=== PATIENT | male | born 1955 | race Caucasian/White ===

== ENCOUNTER → 2016-06-12 | Outpatient (CLI) | payer OTHER ==
--- NOTE | 2016-06-12 10:51 | US ---
EXAMINATION TYPE: US abdomen comp/pelvis limited DATE OF EXAM: 06/12/2016 9:35 AM COMPARISON: US on PACS CLINICAL HISTORY: R10.9 abdominal pain. Hematuria; renal stone left; RLQ pain post hernia repair 2 ye ars prior for bilateral inguinal hernia repair; on meds for gout, cholesterol, HTN, and antibiotic fo r prostate EXAM MEASUREMENTS: Liver Length: 15.1 cm Gallbladder Wall: 0.2 cm CBD: 0.4 cm Spleen: 10.1 cm Right Kidney: 9.9 x 5.9 x 5.0 cm Left Kidney: 9.8 x 4.5 x 4.8 cm Post Void Residual: 3.8 mL TECHNOLOGIST IMPRESSION: Pancreas: wnl as visualized as tail was gassed out with full bladder prep Liver: wnl Gallbladder: wnl CBD: wnl Spleen: wnl Right Kidney: multiple shadowing renal stones with largest at lower pole = 0.6 x 0.4 x 0.4cm; small cyst noted lateral cortex = 0.6 x 0.5 x 0.4cm Left Kidney: multiple shadowing stones with largest at mid lateral pole = 0.8 x 0.7 x 0.5cm Upper IVC: wnl Abd Aorta: wnl Bladder: wnl Bilateral Jets Seen Yes Normal Post Void Residual (normal less than 50ml) Yes At patient's area of pain at RLQ post right hernia repair 2 years ago, possible hernia reoccurrence i s noted medial to mesh on transverse images and as compared to left inguinal area of repair done at s vidya time IMPRESSION: 1. Technologist suggests a right lower quadrant recurrent hernia 2. Nonobstructing left renal stones.
--- NOTE | 2016-06-12 11:02 | US ---
EXAMINATION TYPE: US prostate transrectal DATE OF EXAM: 06/12/2016 10:03 AM COMPARISON: NONE CLINICAL HISTORY: . elevated PSA/ see lab values scanned in orders; on meds for HTN, gout, cholestero l, and antibiotic for prostate; recent hematuria with HX of renal stones This examination was performed using the transrectal probe. EXAM MEASUREMENTS: Gland Size: 4.2 x 4.5 x 3.0cm Volume: 29.8ml Predicted PSA: 3.57ng/ml Actual PSA (if available):7.5ng/ml TECHNOLOGIST IMPRESSION: Multiple Central Gland Calcifications are noted. Size is essentially wnl as Normal Prostate Value is < 30 ml. No peripheral gland hypoechoic areas are noted. IMPRESSION: 1. Calcifications within the prostate. No suspicious hypoechoic areas identified. Predicted PSA = volume x 0.12 ng/ml Calculated Volume = 0.5236 x L x W x H
== END | disposition home or self-care (01) ==
LOC: RADUSMAIN 08:27
PROVIDERS: ATTEND Family Medicine
DX: N20.0 Calculus of kidney (principal); N42.89 Other specified disorders of prostate; R97.20 Elevated prostate specific antigen [PSA]; R10.9 Unspecified abdominal pain
CPT/HCPCS: 76700; 76857; 76872

== ENCOUNTER → 2016-08-08 | Outpatient (CLI) | payer OTHER ==
--- NOTE | 2016-08-08 11:05 | XR ---
EXAMINATION TYPE: XR KUB DATE OF EXAM: 08/08/2016 10:56 AM COMPARISON: NONE HISTORY: Pain TECHNIQUE: One view abdominal series FINDINGS: The osseous structures are intact. The bowel gas pattern is nonspecific. Hypertrophic change of the spine and arthropathy of the hips. Right kidney: Approximately 10 calcifications overlying the right kidney the largest measuring 6 mm. Additional area spine suspicious for a right UPJ calcification measuring a diameter of 9 mm. Left kidney: Approximate 6 punctate calcifications measuring 2 to 3 mm. Pelvis: There is a single calcification overlying the left SI joint along its inferior margin measuri ng 3.6 mm. IMPRESSION: 1. Stable bilateral nephrolithiasis. Distal left ureteral calculus versus vascular calcification. Tony ng the inferior margin of the left SI joint. Correlate clinically.
== END ==
LOC: RADXRMAIN 10:27
PROVIDERS: ATTEND Urology
DX: N20.0 Calculus of kidney (principal)
CPT/HCPCS: 74000

== ENCOUNTER → 2017-01-03 | Outpatient (CLI) | payer OTHER ==
--- NOTE | 2017-01-03 08:46 | CT ---
EXAMINATION TYPE: CT abdomen pelvis w con DATE OF EXAM: 01/03/2017 COMPARISON: NONE HISTORY: Follow up to inguinal hernia repair CT DLP: 652.8 mGycm CONTRAST: CT scan of the abdomen and pelvis is performed with Oral Contrast and with IV Contrast, patient injec florentin with 100 mL of Omnipaque 300. FINDINGS: LUNG BASES-: No visible nodule. No infiltrate. LIVER/GB: No calcified gallstones. No space occupying hepatic lesion. Biliary tree is of normal ca liber. PANCREAS: No inflammation. No distinct mass. SPLEEN: No splenic enlargement. No lesion seen. ADRENALS: No nodule. No thickening. KIDNEYS/BLADDER: No hydronephrosis. There is evidence of bilateral nephrolithiasis. Multiple right-s ided renal calculi with the largest within the lower pole measuring 7.6 mm. The largest calculus left kidney is identified within the mid pole and measures maximal measured dimension of 6.3 mm. No disct inct renal mass. Urinary bladder grossly unremarkable. BOWEL: Normal appendix. Normal bowel caliber. No inflammation. GENITAL ORGANS: No gross abnormality. LYMPH NODES: No greater than 1cm abdominal or pelvic lymph nodes are appreciated. AORTA: No significant abnormality. OSSEOUS STRUCTURES: No significant abnormality is seen. OTHER: Fat-containing inguinal hernias left slightly larger than right. IMPRESSION: 1. Fat-containing inguinal hernias left slightly larger than right. 2. Bilateral nonobstructing nephrolithiasis.
== END | disposition home or self-care (01) ==
LOC: RADCTMAIN 08:12
PROVIDERS: ATTEND Surgery
DX: K40.20 Bilateral inguinal hernia, without obstruction or gangrene, not specified as recurrent (principal); N20.0 Calculus of kidney
CPT/HCPCS: 74177; Q9967

== ENCOUNTER → 2017-06-07 | Outpatient (CLI) | payer BC ==
[2017-06-07 11:10] LABS: Uric Acid 7.1 mg/dL (3.5-8.5)
[2017-06-07 11:41] LABS: Prostate Specific Antigen 5.23 ng/mL (0.00-4.00)
[2017-06-07 16:59] LABS: Hepatitis A Antibody IgM Non-Reactive (Non-Reactive); Hepatitis B Core IgM Non-Reactive (Non-Reactive)
== END | disposition home or self-care (01) ==
LOC: LABWHC1 10:35
PROVIDERS: ATTEND Radiology Radiation Oncology
DX: M10.9 Gout, unspecified (principal); C61 Malignant neoplasm of prostate; Z11.59 Encounter for screening for other viral diseases
CPT/HCPCS: 36415; 80074; 84153; 84550

== ENCOUNTER → 2017-07-24 | Outpatient (CLI) | payer BC | END | disposition home or self-care (01) | LOC: LABWHC1 08:44 | PROVIDERS: ATTEND Radiology Radiation Oncology | DX: C61 Malignant neoplasm of prostate (principal) | CPT/HCPCS: 36415; 84153 ==

== ENCOUNTER → 2017-10-19 | Outpatient (CLI) | payer BC | END | disposition home or self-care (01) | LOC: LABWHC1 08:53 | PROVIDERS: ATTEND Radiology Radiation Oncology | DX: C61 Malignant neoplasm of prostate (principal) | CPT/HCPCS: 36415; 84153 ==

== ENCOUNTER → 2018-01-28 | Outpatient (CLI) | payer BC | END | disposition home or self-care (01) | LOC: LABWHC1 07:09 | PROVIDERS: ATTEND Radiology Radiation Oncology | DX: C61 Malignant neoplasm of prostate (principal) | CPT/HCPCS: 36415; 84153; 84403 ==

== ENCOUNTER → 2018-03-15 | Outpatient (CLI) | payer BC | END | disposition home or self-care (01) | LOC: LABWHC1 08:12 | PROVIDERS: ATTEND Radiology Radiation Oncology | DX: C61 Malignant neoplasm of prostate (principal); Z92.3 Personal history of irradiation | CPT/HCPCS: 36415; 84153 ==

== ENCOUNTER → 2018-06-17 | Outpatient (CLI) | payer BC | END | disposition home or self-care (01) | LOC: LABWHC1 07:45 | PROVIDERS: ATTEND Radiology Radiation Oncology | DX: C61 Malignant neoplasm of prostate (principal); Z92.3 Personal history of irradiation | CPT/HCPCS: 36415; 84153 ==

== ENCOUNTER → 2018-10-07 | Outpatient (CLI) | payer BC | END | disposition home or self-care (01) | LOC: LABWHC1 07:26 | PROVIDERS: ATTEND Radiology Radiation Oncology | DX: C61 Malignant neoplasm of prostate (principal); Z92.3 Personal history of irradiation | CPT/HCPCS: 36415; 84153 ==

== ENCOUNTER → 2019-02-03 | Outpatient (CLI) | payer BC | END | disposition home or self-care (01) | LOC: LABWHC1 07:36 | PROVIDERS: ATTEND Radiology Radiation Oncology | DX: C61 Malignant neoplasm of prostate (principal); Z92.3 Personal history of irradiation | CPT/HCPCS: 36415; 84153 ==

== ENCOUNTER 2019-08-11 11:12 | Emergency (ER) | payer BC ==
[2019-08-11] MEDS ORDERED: SODIUM CHLORIDE 0.9% 500 ML 500 ML IV STA (11:38)
--- NOTE | 2019-08-11 11:50 | ED ---
General Adult HPI - General Chief complaint: Shortness of Breath Stated complaint: Pneumonia,SOB Time Seen by Provider: 08/11/19 11:12 Source: patient, RN notes reviewed, old records reviewed Mode of arrival: ambulatory Limitations: no limitations - History of Present Illness Initial comments: This is a 64-year-old male who presents emergency Department stating for 3 weeks she's had a cough and been treated with antibiotics and steroids and he feels as though in the last week and shortness of breath has gotten worse. Patient states she has some chest soreness and particularly with coughing. Patient states has been ongoing for one week. Patient denies any known fever or chills per patient denies exposure to anyone with COVID and any travel out of state. She states she is occasionally dizzy but there is been no near syncopal episode. Patient denies any numbness or weakness. Patient denies any abdominal pain patient's nausea vomiting diarrhea - Related Data Home Medications Medication Instructions Recorded Confirmed amLODIPine [Norvasc] 2.5 mg PO DAILY 01/28/14 08/11/19 Allopurinol [Zyloprim] 300 mg PO DAILY 08/11/19 08/11/19 Fluticasone/Umeclidin/Vilanter 1 inhalation INHALATION RT-BID 08/11/19 08/11/19 [Trelegy Ellipta 100-62.5-25] Pravastatin Sodium [Pravachol] 20 mg PO DAILY 08/11/19 08/11/19 Tamsulosin HCl [Flomax] 0.4 mg PO HS 08/11/19 08/11/19 Allergies Allergy/AdvReac Type Severity Reaction Status Date / Time lisinopril Allergy Severe RENAL Verified 08/11/19 12:21 FAILURE sulfamethoxazole Allergy Severe RENAL Verified 08/11/19 12:21 [From Bactrim] FAILURE trimethoprim [From Bactrim] Allergy Severe RENAL Verified 08/11/19 12:21 FAILURE amoxicillin [Amoxicillin] Allergy Unknown Rash/Hives Verified 08/11/19 12:21 Penicillins Allergy Unknown Rash/Hives Verified 08/11/19 12:21 Review of Systems ROS Statement: Those systems with pertinent positive or pertinent negative responses have been documented in the HPI. ROS Other: All systems not noted in ROS Statement are negative. Past Medical History Past Medical History: Hyperlipidemia, Hypertension, Osteoarthritis (OA) Additional Past Medical History / Comment(s): GOUT, BACK PAIN. STATES "KIDNEYS SHUT DOWN FROM MEDICATIONS" History of Any Multi-Drug Resistant Organisms: None Reported Additional Past Surgical History / Comment(s): RT HAND TRIGGER FINGER Past Anesthesia/Blood Transfusion Reactions: No Reported Reaction Past Psychological History: Anxiety Smoking Status: Never smoker Past Alcohol Use History: Occasional Past Drug Use History: Marijuana General Exam - General Exam Comments Initial Comments: GENERAL: Patient is well-developed and well-nourished. Patient is nontoxic and well- hydrated and is in no acute distress. ENT: Neck is soft and supple. No significant lymphadenopathy is noted. Oropharynx is clear. Moist mucous membranes. Neck has full range of motion without eliciting any pain. EYES: The sclera were anicteric and conjunctiva were pink and moist. Extraocular movements were intact and pupils were equal round and reactive to light. Eyelids were unremarkable. PULMONARY: Unlabored respirations. Good breath sounds bilaterally. No audible rales rhonchi or wheezing was noted. CARDIOVASCULAR: There is a regular rate and rhythm without any murmurs gallops or rubs. ABDOMEN: Soft and nontender with normal bowel sounds. SKIN: Skin is clear with no lesions or rashes and otherwise unremarkable. NEUROLOGIC: Patient is alert and oriented x3. Cranial nerves II through XII are grossly intact. Motor and sensory are also intact. Normal speech, volume and content. Symmetrical smile. MUSCULOSKELETAL: Normal extremities with adequate strength and full range of motion. No lower extremity swelling or edema. No calf tenderness. LYMPHATICS: No significant lymphadenopathy is noted PSYCHIATRIC: Patient is mildly anxious Limitations: no limitations Course Vital Signs 08/11/19 11:16 Temperature 97.7 F Pulse Rate 94 Respiratory 18 Rate Blood Pressure 149/96 O2 Sat by Pulse 100 Oximetry Medical Decision Making - Medical Decision Making EKG shows normal sinus rhythm at 77 bpm NH interval is 186 QRS is 110 QT interval 364 QTC is 411. Patient's EKG shows no ST segment elevation or depres tere. Chest x-ray shows no acute abnormality. I will begin the room to reevaluate the patient on room air the patient was satting 100%. I told the patient everything was looking good with his lab work and x-ray he stated that he is 80. Anxious person and has a history of anxiety. - Lab Data Result diagrams: 08/11/19 11:50 08/11/19 11:50 Lab Results 08/11/19 08/11/19 08/11/19 Range/Units 11:50 11:50 11:50 WBC 5.2 (3.8-10.6) k/uL RBC 4.88 (4.30-5.90) m/uL Hgb 15.1 (13.0-17.5) gm/dL Hct 44.3 (39.0-53.0) % MCV 90.8 (80.0-100.0) fL MCH 30.9 (25.0-35.0) pg MCHC 34.0 (31.0-37.0) g/dL RDW 13.9 (11.5-15.5) % Plt Count 135 L (150-450) k/uL Neutrophils % 67 % Lymphocytes % 20 % Monocytes % 6 % Eosinophils % 2 % Basophils % 1 % Neutrophils # 3.5 (1.3-7.7) k/uL Lymphocytes # 1.0 (1.0-4.8) k/uL Monocytes # 0.3 (0-1.0) k/uL Eosinophils # 0.1 (0-0.7) k/uL Basophils # 0.1 (0-0.2) k/uL PT 10.4 (9.0-12.0) sec INR 1.0 (<1.2) APTT 23.0 (22.0-30.0) sec D-Dimer 0.48 (<0.60) mg/L FEU Sodium 139 (137-145) mmol/L Potassium 4.3 (3.5-5.1) mmol/L Chloride 106 (98-107) mmol/L Carbon Dioxide 25 (22-30) mmol/L Anion Gap 8 mmol/L BUN 15 (9-20) mg/dL Creatinine 1.12 (0.66-1.25) mg/dL Est GFR (CKD-EPI)AfAm 80 (>60 ml/min/1.73 sqM) Est GFR (CKD-EPI)NonAf 69 (>60 ml/min/1.73 sqM) Glucose 99 (74-99) mg/dL Plasma Lactic Acid Kurt (0.7-2.0) mmol/L Calcium 9.9 (8.4-10.2) mg/dL Magnesium 1.6 (1.6-2.3) mg/dL Total Bilirubin 0.6 (0.2-1.3) mg/dL AST 28 (17-59) U/L ALT 22 (4-49) U/L Alkaline Phosphatase 96 (38-126) U/L Troponin I (0.000-0.034) ng/mL NT-Pro-B Natriuret Pep pg/mL Total Protein 7.2 (6.3-8.2) g/dL Albumin 4.5 (3.5-5.0) g/dL 08/11/19 08/11/19 08/11/19 Range/Units 11:50 11:50 11:50 WBC (3.8-10.6) k/uL RBC (4.30-5.90) m/uL Hgb (13.0-17.5) gm/dL Hct (39.0-53.0) % MCV (80.0-100.0) fL MCH (25.0-35.0) pg MCHC (31.0-37.0) g/dL RDW (11.5-15.5) % Plt Count (150-450) k/uL Neutrophils % % Lymphocytes % % Monocytes % % Eosinophils % % Basophils % % Neutrophils # (1.3-7.7) k/uL Lymphocytes # (1.0-4.8) k/uL Monocytes # (0-1.0) k/uL Eosinophils # (0-0.7) k/uL Basophils # (0-0.2) k/uL PT (9.0-12.0) sec INR (<1.2) APTT (22.0-30.0) sec D-Dimer (<0.60) mg/L FEU Sodium (137-145) mmol/L Potassium (3.5-5.1) mmol/L Chloride (98-107) mmol/L Carbon Dioxide (22-30) mmol/L Anion Gap mmol/L BUN (9-20) mg/dL Creatinine (0.66-1.25) mg/dL Est GFR (CKD-EPI)AfAm (>60 ml/min/1.73 sqM) Est GFR (CKD-EPI)NonAf (>60 ml/min/1.73 sqM) Glucose (74-99) mg/dL Plasma Lactic Acid Kurt 1.4 (0.7-2.0) mmol/L Calcium (8.4-10.2) mg/dL Magnesium (1.6-2.3) mg/dL Total Bilirubin (0.2-1.3) mg/dL AST (17-59) U/L ALT (4-49) U/L Alkaline Phosphatase (38-126) U/L Troponin I <0.012 (0.000-0.034) ng/mL NT-Pro-B Natriuret Pep 65 pg/mL Total Protein (6.3-8.2) g/dL Albumin (3.5-5.0) g/dL Disposition Clinical Impression: Anxiety Disposition: HOME SELF-CARE Is patient prescribed a controlled substance at d/c from ED?: No Referrals: Orlin Catalan MD [Primary Care Provider] - 1-2 days Time of Disposition: 12:58
[2019-08-11 12:15] LABS: Albumin 4.5 g/dL (3.5-5.0); Calcium 9.9 mg/dL (8.4-10.2); Magnesium 1.6 mg/dL (1.6-2.3); Potassium 4.3 mmol/L (3.5-5.1); Total Bilirubin 0.6 mg/dL (0.2-1.3); Total Protein 7.2 g/dL (6.3-8.2)
[2019-08-11 12:16] LABS: Basophils # (A) 0.1 k/uL (0-0.2); Basophils % (A) 1 %; Eosinophils # (A) 0.1 k/uL (0-0.7); Eosinophils % (A) 2 %; HCT 44.3 % (39.0-53.0); HGB 15.1 gm/dL (13.0-17.5); Lymphocytes % (A) 20 %; MCH 30.9 pg (25.0-35.0); MCV 90.8 fL (80.0-100.0); Mean Platelet Volume 8.5; Monocytes # (A) 0.3 k/uL (0-1.0); Monocytes % (A) 6 %; Neutrophils # (A) 3.5 k/uL (1.3-7.7); Neutrophils % (A) 67 %; Platelet Count 135 k/uL (150-450); RBC 4.88 m/uL (4.30-5.90); RDW 13.9 % (11.5-15.5); WBC 5.2 k/uL (3.8-10.6)
[2019-08-11 12:20] LABS: D-Dimer 0.48 mg/L FEU (<0.60); Prothrombin Time 10.4 sec (9.0-12.0)
--- NOTE | 2019-08-11 12:20 | XR ---
EXAMINATION TYPE: XR chest 2V DATE OF EXAM: 08/11/2019 COMPARISON: NONE HISTORY: Difficulty breathing TECHNIQUE: Frontal and lateral views of the chest are obtained. FINDINGS: There is no focal air space opacity, pleural effusion, or pneumothorax seen. The cardiac silhouette size is within normal limits. The osseous structures are intact. There are overlying car diac leads. IMPRESSION: No acute cardiopulmonary process.
[2019-08-11 13:34] VITALS: BP 136/91; PULSE 74; RESP 20; TEMP 98.1
== END 2019-08-11 13:33 | disposition home or self-care (01) ==
LOC: EC 11:12
DX: F41.9 Anxiety disorder, unspecified (principal); I10 Essential (primary) hypertension; E78.5 Hyperlipidemia, unspecified; Z79.899 Other long term (current) drug therapy; Z79.51 Long term (current) use of inhaled steroids; Z88.1 Allergy status to other antibiotic agents; Z88.0 Allergy status to penicillin; Z88.2 Allergy status to sulfonamides; Z88.8 Allergy status to other drugs, medicaments and biological substances
CPT/HCPCS: 36415; 71046; 80053; 83605; 83735; 83880; 84484; 85025; 85379; 85610; 85730; 93005; 99285

== ENCOUNTER → 2019-08-13 | Outpatient (CLI) | payer BC ==
--- NOTE | 2019-08-13 11:39 | ECHOS ---
STRESS ECHOCARDIOGRAM INDICATIONS: Dyspnea. MEDICATIONS: Pravastatin, Allopurinol, amlodipine, Tamsulosin BASELINE HEART RATE: 81 BASELINE BLOOD PRESSURE: 145/94 MAXIMUM HEART RATE: 143 MAXIMUM BLOOD PRESSURE: 183/89 85% MPHR: 133 100% MPHR: 156 METS: 11.5 MAXIMUM STAGE REACHED: 4 TOTAL EXERCISE TIME: 10:00 CLINICAL INFORMATION: Pretesting physical examination showed a heart rate of 81, pressure is 145/94 mmHg. Baseline EKG showed sinus rhythm. The patient exercised on the treadmill according to [employer] protocol for a total of 10 minutes and achieved 11.5 METS. Max heart rate was 143, which is about 100% of maximum predicted heart rate. Maximum blood pressure was 183/89 mmHg. Clinically, the patient did not have any symptoms of chest pain or chest discomfort during the testing or on recovery. The EKG did not show any significant ST or T-wave abnormalities concerning for ischemia. On echocardiogram images from parasternal long axis view, parasternal short axis view, apical 4 chamber and apical 2 chamber view, were obtained as the baseline images, at peak heart rate as well as on recovery. The echocardiogram images showed good augmentation in the left ventricular systolic function without any evidence of wall motion abnormalities concerning for ischemia. CONCLUSION: 1. Excellent exercise tolerance. 2. Normal EKG in response to exercise. 3. Normal echocardiogram in response to exercise. 4. Essentially normal stress echocardiogram. MMODL / IJN: [id number] /
== END | disposition home or self-care (01) ==
LOC: RADNMMAIN 08:51
PROVIDERS: ATTEND Family Medicine
DX: R06.00 Dyspnea, unspecified (principal)
CPT/HCPCS: 93351

== ENCOUNTER → 2019-11-07 | Outpatient (CLI) | payer BC | END | disposition home or self-care (01) | LOC: LABWHC1 08:01 | PROVIDERS: ATTEND Radiology Radiation Oncology | DX: C61 Malignant neoplasm of prostate (principal); Z92.3 Personal history of irradiation | CPT/HCPCS: 36415; 84153 ==

== ENCOUNTER → 2020-06-17 | Outpatient (CLI) | payer MEDICARE | END | disposition home or self-care (01) | LOC: LABWHC1 13:53 | PROVIDERS: ATTEND Radiology Radiation Oncology | DX: C61 Malignant neoplasm of prostate (principal); Z92.3 Personal history of irradiation | CPT/HCPCS: 36415; 84153; 84403 ==

== ENCOUNTER → 2020-12-06 | Outpatient (CLI) | payer MEDICARE ==
--- NOTE | 2020-12-06 13:31 | CT ---
EXAMINATION TYPE: CT abdomen pelvis wo con DATE OF EXAM: 12/06/2020 COMPARISON: 01/03/2017 INDICATION: RLQ pain DLP: 464.30 mGycm, Automated exposure control for dose reduction was used. CONTRAST: 0 mL of Isovue 300. Study performed without Oral Contrast TECHNIQUE: Axial images were obtained from above the diaphragm to the pubic rami in the axial plane a t 5 mm thick sections. Reconstructed images are reviewed on the computer in the coronal plane. FINDINGS: Limited CT sections are obtained the lung bases. The lung bases are clear. CT ABDOMEN: Liver: Normal Spleen: Normal Pancreas: Normal Adrenal glands: The adrenal glands are normal. Gallbladder: Normal Kidneys: No masses are evident. No hydronephrosis is present. No cysts are present. Multiple nonob structing renal stones are present bilaterally. The largest at the inferior pole right kidney measure s 0.7 cm. The largest on the left mid posterior lateral kidney measures 0.4 cm. Aorta: Vascular calcification is within the aorta. Inferior vena cava: Normal. CT PELVIS: Loops of bowel within the abdomen and pelvis are normal. There are loops of bowel which are incom pletely distended or lack oral contrast limiting their evaluation. Appendix: Normal as visualized. Urinary bladder: Normal. Genitourinary structures: Prostate is normal. Osseous structures: No suspicious lytic or sclerotic lesions. IMPRESSIONS: 1. Normal appendix. 2. Multiple bilateral nonobstructing renal stones.
== END | disposition home or self-care (01) ==
LOC: RADCTMAIN 12:50
PROVIDERS: ATTEND Nurse Practitioner Adult Health
DX: N20.0 Calculus of kidney (principal)
CPT/HCPCS: 74176

== ENCOUNTER → 2020-12-24 | Outpatient (CLI) | payer MEDICARE ==
--- NOTE | 2020-12-24 12:17 | XR ---
EXAMINATION TYPE: XR KUB DATE OF EXAM: 12/24/2020 COMPARISON: NONE HISTORY: 08/08/2016 TECHNIQUE: One view abdominal series FINDINGS: The osseous structures are intact. The bowel gas pattern is nonspecific. Right kidney: There is approximately 14 calcifications overlying the right renal outline largest in t he lower pole measuring 6.2 mm. Left kidney: There are approximately 7 less than 5 mm left renal calculi. Hypertrophic and degenerative changes spine with arthropathy of the hips. IMPRESSION: 1. Nonspecific abdomen. Bilateral nephrolithiasis as measured above
== END | disposition home or self-care (01) ==
LOC: RADXRMAIN 11:52
PROVIDERS: ATTEND Urology
DX: N20.0 Calculus of kidney (principal)
CPT/HCPCS: 74018

== ENCOUNTER → 2020-12-27 | Outpatient (CLI) | payer MEDICARE | END | disposition home or self-care (01) | LOC: LABWHC1 07:48 | PROVIDERS: ATTEND Radiology Radiation Oncology | DX: Z08 Encounter for follow-up examination after completed treatment for malignant neoplasm (principal); C61 Malignant neoplasm of prostate; Z92.3 Personal history of irradiation | CPT/HCPCS: 36415; 84153 ==

== ENCOUNTER → 2020-12-28 | Outpatient (CLI) | payer MEDICARE ==
[2020-12-28 08:20] LABS: Basophils # (A) 0.1 k/uL (0-0.2); Basophils % (A) 1 %; Eosinophils # (A) 0.2 k/uL (0-0.7); Eosinophils % (A) 4 %; HCT 47.7 % (39.0-53.0); HGB 15.8 gm/dL (13.0-17.5); Lymphocytes # (A) 1.4 k/uL (1.0-4.8); Lymphocytes % (A) 24 %; MCH 31.5 pg (25.0-35.0); MCHC 33.1 g/dL (31.0-37.0); MCV 95.2 fL (80.0-100.0); Monocytes # (A) 0.4 k/uL (0-1.0); Monocytes % (A) 6 %; Neutrophils # (A) 3.7 k/uL (1.3-7.7); Neutrophils % (A) 62 %; Platelet Count 158 k/uL (150-450); RBC 5.01 m/uL (4.30-5.90); RDW 13.8 % (11.5-15.5); WBC 5.9 k/uL (3.8-10.6)
[2020-12-28 08:35] LABS: Potassium 4.3 mmol/L (3.5-5.1)
== END | disposition home or self-care (01) ==
LOC: LABPAT 08:06
PROVIDERS: ATTEND Urology
DX: Z01.812 Encounter for preprocedural laboratory examination (principal); N20.0 Calculus of kidney
CPT/HCPCS: 36415; 80051; 82565; 84520; 85025

== ENCOUNTER 2021-01-03 07:44 | Day surgery (SDC) | payer MEDICARE ==
[2020-12-30 12:51] VITALS: BMI 25.9
--- NOTE | 2021-01-02 09:00 | P.GSHP ---
History of Present Illness H&P Date: 01/02/21 65 yo male with symptomatic right renal stones. WE discussed treatment options. he comes for eswl right He has multiple stones We will treat the larger first. Past Medical History Past Medical History: Cancer, Hyperlipidemia, Hypertension, Osteoarthritis (OA), Prostate Disorder Additional Past Medical History / Comment(s): GOUT, BACK PAIN. STATES "KIDNEYS SHUT DOWN FROM MEDICATIONS", GOUT, PROSTATE CANCER History of Any Multi-Drug Resistant Organisms: None Reported Past Surgical History: Orthopedic Surgery Additional Past Surgical History / Comment(s): RT HAND TRIGGER FINGER, Past Anesthesia/Blood Transfusion Reactions: No Reported Reaction Smoking Status: Never smoker - Past Family History Father Family Medical History: Cancer Brother(s) Family Medical History: Cancer Medications and Allergies Home Medications Medication Instructions Recorded Confirmed Type amLODIPine [Norvasc] 2.5 mg PO DAILY 01/28/14 12/30/20 History Pravastatin Sodium [Pravachol] 20 mg PO DAILY 08/11/19 12/30/20 History Tamsulosin HCl [Flomax] 0.4 mg PO HS 08/11/19 12/30/20 History Allopurinol [Zyloprim] 100 mg PO DAILY 12/30/20 12/30/20 History Allergies Allergy/AdvReac Type Severity Reaction Status Date / Time lisinopril Allergy Severe RENAL Verified 12/30/20 12:41 FAILURE sulfamethoxazole Allergy Severe RENAL Verified 12/30/20 12:41 [From Bactrim] FAILURE trimethoprim [From Bactrim] Allergy Severe RENAL Verified 12/30/20 12:41 FAILURE amoxicillin [Amoxicillin] Allergy Unknown Rash/Hives Verified 12/30/20 12:41 Penicillins Allergy Unknown Rash/Hives Verified 12/30/20 12:41 Surgical - Exam - General well developed, well nourished, no distress - Eyes PERRL - ENT no hearing loss - Neck trachea midline - Respiratory normal expansion, normal respiratory effort - Cardiovascular Rhythm: regular - Abdomen Abdomen: soft, non tender - Genitourinary normal penis with no external lesions, testicles present - Neurologic normal coordination, normal sensation - Musculoskeletal normal gait, normal posture - Psychiatric oriented to time, oriented to person, oriented to place, speech is normal, memory intact Results - Imaging Abdominal x-ray: report reviewed, image reviewed CT scan - abdomen: report reviewed, image reviewed CT scan - pelvis: report reviewed, image reviewed Assessment and Plan Assessment: Impression: Right renal stones Plan: eswl right
[~2021-01-03 07:44] MED LIST: LACTATED RINGERS 1,000 ML IV SCH; LIDOCAINE 1% (10MG/ML) FOR IV START INTRADERMA PRN
--- NOTE | 2021-01-03 08:12 | XR ---
EXAMINATION TYPE: XR KUB DATE OF EXAM: 01/03/2021 Comparison: 12/24/2020 Clinical History: 65-year-old male presurgical, bilateral KIDNEY STONES Findings: Nonobstructive bowel gas pattern. Scattered mild stool. Bilateral numerous renal calculi. On the left, these are multiple and small measuring up to 3 mm. On the right, these are also multiple with some larger calculi measuring up to 7 mm. Stable oval calcification measuring 5 mm in the right side of the pelvis, probable phlebolith. Some c oils projecting near the left superior pubic ramus. Impression: Redemonstrated bilateral nephrolithiasis measuring up to 7 mm.
[2021-01-03 08:16] VITALS: TEMP 97.7
[2021-01-03] MEDS ORDERED: LACTATED RINGERS 1,000 ML IV ONE (08:16)
[2021-01-03] MEDS ORDERED: ONDANSETRON 4 MG/2 ML VIAL ONE (08:25)
[2021-01-03] MEDS ORDERED: DEXAMETHASONE SOD PHOSPHATE 4 MG/ML 1 ML VIAL IVP ONE (08:27)
[2021-01-03] MEDS ORDERED: ONDANSETRON 4 MG/2 ML VIAL IVP ONE (08:27)
[2021-01-03] MEDS ORDERED: PROPOFOL 10 MG/ML 20 ML VIAL IV ONE (09:15)
[2021-01-03] MEDS ORDERED: fentaNYL (PF) 50 MCG/ML 2 ML AMP ONE (09:15)
[2021-01-03] MEDS ORDERED: MIDAZOLAM 2 MG/2 ML VIAL ONE (09:15)
--- NOTE | 2021-01-03 10:02 | P.OP ---
Date of Procedure: 01/03/21 Preoperative Diagnosis: Right renal stone Postoperative Diagnosis: Same Procedure(s) Performed: Right ESWL Implants: none Anesthesia: BEBO Surgeon: Maximo Salazar Estimated Blood Loss (ml): 0 Pathology: none sent Condition: stable Disposition: PACU Indications for Procedure: This is a 65-year-old male with history of right-sided renal stone, of note on KUB there was multiple kidney stones. Option of ESWL was discussed with him. Risk and benefits was discussed in details. He understood all the risk and agreed to proceed with right-sided ESWL. Discussed with him given the amount of stone burden he will more likely require 2 surgeries to clear his stones Operative Findings: 3 stones were targeted, 2 stones in the lower pole and an additional stone in the midpole Description of Procedure: The patient was taken to the operating room and placed on the Dornier Compact Delta II lithotripter in the supine position. The calculus was seen on biplanar fluoroscopy. . Once the patient was properly positioned and sedated, lithotripsy was performed. The energy level was gradually increased per protocol, to an energy level of 4. A total of 2500 shocks were given. 1000 shock was deliver to the lower pole stone, and an additional 900 shock were delivered to the second lower pole stone, and 600 shocks were delivered to the midpole stone. A rate of 80 shocks per minute. Fluoroscopy was utilized at a minimum to ensure proper positioning and determine the treatment status. The calculus changed in appearance, there was excellent fragmentation of each of the targeted stones. Repeat fluoroscopy was done at the end of the case which showed no residual fragments that can be seen, but of note patient still had some residual stones in the upper pole The patient tolerated the procedure well was taken to the recovery room in stable condition. Instructions were given to strain the urine, and the patient will follow-up within one week.
[2021-01-03 10:27] VITALS: BP 133/81; PULSE 77; RESP 16
== END 2021-01-03 10:58 | disposition home or self-care (01) ==
LOC: ORWHC2ENDO 07:44
PROVIDERS: ATTEND Urology
DX: N20.0 Calculus of kidney (principal); Z87.442 Personal history of urinary calculi
CPT/HCPCS: 50590; 74018; J2250; J1100; J2405; J3010; J2704

== ENCOUNTER → 2021-01-10 | Outpatient (CLI) | payer MEDICARE ==
--- NOTE | 2021-01-10 09:18 | XR ---
EXAMINATION TYPE: XR KUB DATE OF EXAM: 01/10/2021 COMPARISON: 01/03/2021 HISTORY: Lithotripsy TECHNIQUE: One view abdominal series FINDINGS: The osseous structures are intact. The bowel gas pattern is nonspecific. Hypertrophic and degenerati ve change of the spine. Arthropathy of the hips. Right kidney: There are approximately 9 calcifications overlying the right kidney all measuring 5 mm or less. 4.8 mm right hemipelvic calcification stable. Calcifications may be slightly reduced in size relative to prior exam. Left kidney: Approximately 8-9 some 5 mm left renal calculi stable. IMPRESSION: 1. Nonspecific abdomen. A bilateral renal calculi as discussed above.
== END | disposition home or self-care (01) ==
LOC: RADXRMAIN 08:31
PROVIDERS: ATTEND Urology
DX: N20.0 Calculus of kidney (principal)
CPT/HCPCS: 74018

== ENCOUNTER → 2021-06-27 | Outpatient (CLI) | payer MEDICARE | END | disposition home or self-care (01) | LOC: LABWHC1 08:22 | PROVIDERS: ATTEND Radiology Radiation Oncology | DX: Z08 Encounter for follow-up examination after completed treatment for malignant neoplasm (principal); C61 Malignant neoplasm of prostate; Z92.3 Personal history of irradiation | CPT/HCPCS: 36415; 84153 ==

== ENCOUNTER 2021-07-20 14:06 | Emergency (ER) | payer MEDICARE ==
[2021-07-20 14:43] VITALS: RESP 18; TEMP 97.9
[2021-07-20] MEDS ORDERED: NITROGLYCERIN SL TABS 0.4 MG TAB SUBLINGUAL PRN (15:05)
[2021-07-20 15:49] LABS: Albumin 4.7 g/dL (3.5-5.0); Calcium 9.8 mg/dL (8.4-10.2); Magnesium 1.9 mg/dL (1.6-2.3); Potassium 4.2 mmol/L (3.5-5.1); Total Bilirubin 0.9 mg/dL (0.2-1.3); Total Protein 7.9 g/dL (6.3-8.2)
--- NOTE | 2021-07-20 15:58 | XR ---
EXAMINATION TYPE: XR chest 2V DATE OF EXAM: 07/20/2021 COMPARISON: Chest x-ray 08/11/2019 HISTORY: Chest pain TECHNIQUE: Frontal and lateral views of the chest are obtained. FINDINGS: There is no focal air space opacity, pleural effusion, or pneumothorax seen. The cardiac silhouette size is within normal limits. There are overlying cardiac leads. The osseous structures a re intact. IMPRESSION: No acute cardiopulmonary process.
[2021-07-20 16:06] LABS: Prothrombin Time 10.5 sec (9.0-12.0)
--- NOTE | 2021-07-20 16:10 | ED ---
General Adult HPI - General Chief complaint: Chest Pain Stated complaint: chest pain Time Seen by Provider: 07/20/21 14:57 Source: patient Mode of arrival: wheelchair Limitations: no limitations - History of Present Illness Initial comments: 66 year old male presents emergency department for chest pain. States he's had intermittent chest pain for the past month. He describes it as a sharp shooting sensation which is located over the left side of his chest. Denies any provocative factors. States the pain will spontaneously resolve after 30 second s. Denies history of DVT or PE. No calf pain or swelling. Patient does not have any history of coronary disease. No recent fevers, chills or cough. Has had a stress test however this was approximately 10 years ago. He went to see his primary care today when he mentioned that he had chest pain, he sent him immediately over to the emergency room. - Related Data Home Medications Medication Instructions Recorded Confirmed amLODIPine [Norvasc] 2.5 mg PO DAILY 01/28/14 07/20/21 Pravastatin Sodium [Pravachol] 20 mg PO DAILY 08/11/19 07/20/21 Tamsulosin HCl [Flomax] 0.4 mg PO HS PRN 08/11/19 07/20/21 Allopurinol [Zyloprim] 100 mg PO DAILY 12/30/20 07/20/21 Allergies Allergy/AdvReac Type Severity Reaction Status Date / Time lisinopril Allergy Severe RENAL Verified 07/20/21 16:09 FAILURE sulfamethoxazole Allergy Severe RENAL Verified 07/20/21 16:09 [From Bactrim] FAILURE trimethoprim [From Bactrim] Allergy Severe RENAL Verified 07/20/21 16:09 FAILURE amoxicillin [Amoxicillin] Allergy Unknown Rash/Hives Verified 07/20/21 16:09 Penicillins Allergy Unknown Rash/Hives Verified 07/20/21 16:09 Review of Systems ROS Statement: Those systems with pertinent positive or pertinent negative responses have been documented in the HPI. ROS Other: All systems not noted in ROS Statement are negative. Past Medical History Past Medical History: Hyperlipidemia, Hypertension, Osteoarthritis (OA) Additional Past Medical History / Comment(s): GOUT, BACK PAIN. STATES "KIDNEYS SHUT DOWN FROM MEDICATIONS" History of Any Multi-Drug Resistant Organisms: None Reported Additional Past Surgical History / Comment(s): RT HAND TRIGGER FINGER Past Anesthesia/Blood Transfusion Reactions: No Reported Reaction Past Psychological History: Anxiety Smoking Status: Never smoker Past Alcohol Use History: Occasional Past Drug Use History: Marijuana General Exam Limitations: no limitations Course Vital Signs 07/20/21 07/20/21 07/20/21 14:40 15:53 16:33 Temperature 97.9 F Pulse Rate 73 67 Pulse Rate [ 71 Sitting Gunnery/Ordnance Officer] Respiratory 18 18 Rate Blood Pressure 131/80 117/89 O2 Sat by Pulse 99 97 Oximetry 07/20/21 18:05 Temperature Pulse Rate 68 Pulse Rate [ Sitting Gunnery/Ordnance Officer] Respiratory 18 Rate Blood Pressure 126/78 O2 Sat by Pulse 98 Oximetry EKG Findings - EKG Comments: EKG Findings:: EKG demonstrates sinus rhythm with a rate of 64. CT interval 173. QRS 118. QTC of 406. No acute ST segment elevations or depressions. Medical Decision Making - Medical Decision Making Upon arrival patient was placed into room 28. He is pain-free at this time. 12-lead EKG is unremarkable. Laboratory studies are conducted. D-dimer negative. Troponin negative. Chest x-ray demonstrates no acute findings. I did discuss results with the patient. Offer hospital admission versus outpatient workup. Patient would prefer to see his primary care doctor and have Holter monitoring And a stress test and echo in the outpatient setting. I did discuss the limitations of work or provided the emergency room. Requested he return for any worsening symptoms. Patient agreed she will plan is discharge home in stable condition - Lab Data Result diagrams: 07/20/21 15:20 07/20/21 15:20 Lab Results 07/20/21 07/20/21 07/20/21 Range/Units 15:20 15:20 15:20 WBC 8.4 (3.8-10.6) k/uL RBC 5.49 (4.30-5.90) m/uL Hgb 17.3 (13.0-17.5) gm/dL Hct 51.2 (39.0-53.0) % MCV 93.2 (80.0-100.0) fL MCH 31.5 (25.0-35.0) pg MCHC 33.8 (31.0-37.0) g/dL RDW 13.9 (11.5-15.5) % Plt Count 169 (150-450) k/uL MPV 8.1 Neutrophils % 80 % Lymphocytes % 12 % Monocytes % 5 % Eosinophils % 2 % Basophils % 1 % Neutrophils # 6.7 (1.3-7.7) k/uL Lymphocytes # 1.0 (1.0-4.8) k/uL Monocytes # 0.4 (0-1.0) k/uL Eosinophils # 0.1 (0-0.7) k/uL Basophils # 0.1 (0-0.2) k/uL PT 10.5 (9.0-12.0) sec INR 1.0 (<1.2) APTT 25.0 (22.0-30.0) sec D-Dimer 0.44 (<0.60) mg/L FEU Sodium 139 (137-145) mmol/L Potassium 4.2 (3.5-5.1) mmol/L Chloride 105 (98-107) mmol/L Carbon Dioxide 24 (22-30) mmol/L Anion Gap 10 mmol/L BUN 22 H (9-20) mg/dL Creatinine 1.19 (0.66-1.25) mg/dL Est GFR (CKD-EPI)AfAm 73 (>60 ml/min/1.73 sqM) Est GFR (CKD-EPI)NonAf 63 (>60 ml/min/1.73 sqM) Glucose 99 (74-99) mg/dL Calcium 9.8 (8.4-10.2) mg/dL Magnesium 1.9 (1.6-2.3) mg/dL Total Bilirubin 0.9 (0.2-1.3) mg/dL AST 28 (17-59) U/L ALT 20 (4-49) U/L Alkaline Phosphatase 111 (38-126) U/L Troponin I (0.000-0.034) ng/mL NT-Pro-B Natriuret Pep pg/mL Total Protein 7.9 (6.3-8.2) g/dL Albumin 4.7 (3.5-5.0) g/dL Lipase 115 (23-300) U/L 07/20/21 07/20/21 Range/Units 15:20 15:20 WBC (3.8-10.6) k/uL RBC (4.30-5.90) m/uL Hgb (13.0-17.5) gm/dL Hct (39.0-53.0) % MCV (80.0-100.0) fL MCH (25.0-35.0) pg MCHC (31.0-37.0) g/dL RDW (11.5-15.5) % Plt Count (150-450) k/uL MPV Neutrophils % % Lymphocytes % % Monocytes % % Eosinophils % % Basophils % % Neutrophils # (1.3-7.7) k/uL Lymphocytes # (1.0-4.8) k/uL Monocytes # (0-1.0) k/uL Eosinophils # (0-0.7) k/uL Basophils # (0-0.2) k/uL PT (9.0-12.0) sec INR (<1.2) APTT (22.0-30.0) sec D-Dimer (<0.60) mg/L FEU Sodium (137-145) mmol/L Potassium (3.5-5.1) mmol/L Chloride (98-107) mmol/L Carbon Dioxide (22-30) mmol/L Anion Gap mmol/L BUN (9-20) mg/dL Creatinine (0.66-1.25) mg/dL Est GFR (CKD-EPI)AfAm (>60 ml/min/1.73 sqM) Est GFR (CKD-EPI)NonAf (>60 ml/min/1.73 sqM) Glucose (74-99) mg/dL Calcium (8.4-10.2) mg/dL Magnesium (1.6-2.3) mg/dL Total Bilirubin (0.2-1.3) mg/dL AST (17-59) U/L ALT (4-49) U/L Alkaline Phosphatase (38-126) U/L Troponin I <0.012 (0.000-0.034) ng/mL NT-Pro-B Natriuret Pep 46 pg/mL Total Protein (6.3-8.2) g/dL Albumin (3.5-5.0) g/dL Lipase (23-300) U/L Disposition Clinical Impression: Chest pain Disposition: HOME SELF-CARE Condition: Stable Instructions (If sedation given, give patient instructions): Chest Pain (ED) Additional Instructions: Please follow-up with your primary care doctor for further evaluation in 2-4 days. You will need an echo, Holter monitoring and a stress test. Return to the emergency room for any new or worsening symptoms Is patient prescribed a controlled substance at d/c from ED?: No Referrals: Orlin Catalan MD [Primary Care Provider] - 1-2 days Time of Disposition: 17:52
[2021-07-20 16:13] LABS: Basophils # (A) 0.1 k/uL (0-0.2); Basophils % (A) 1 %; Eosinophils # (A) 0.1 k/uL (0-0.7); Eosinophils % (A) 2 %; HCT 51.2 % (39.0-53.0); HGB 17.3 gm/dL (13.0-17.5); Lymphocytes % (A) 12 %; MCH 31.5 pg (25.0-35.0); MCHC 33.8 g/dL (31.0-37.0); MCV 93.2 fL (80.0-100.0); Mean Platelet Volume 8.1; Monocytes # (A) 0.4 k/uL (0-1.0); Monocytes % (A) 5 %; Neutrophils # (A) 6.7 k/uL (1.3-7.7); Neutrophils % (A) 80 %; Platelet Count 169 k/uL (150-450); RBC 5.49 m/uL (4.30-5.90); RDW 13.9 % (11.5-15.5); WBC 8.4 k/uL (3.8-10.6)
[2021-07-20 18:07] VITALS: BP 126/78; PULSE 68
== END 2021-07-20 18:05 | disposition home or self-care (01) ==
LOC: EC 14:06
DX: R07.89 Other chest pain (principal); I10 Essential (primary) hypertension; E78.5 Hyperlipidemia, unspecified; M19.90 Unspecified osteoarthritis, unspecified site; F41.9 Anxiety disorder, unspecified; Z88.0 Allergy status to penicillin; Z88.1 Allergy status to other antibiotic agents; Z88.2 Allergy status to sulfonamides
CPT/HCPCS: 36415; 71046; 80053; 83690; 83735; 83880; 84484; 85025; 85379; 85610; 85730; 93005; 99285

== ENCOUNTER → 2021-08-02 | Outpatient (CLI) | payer MEDICARE ==
--- NOTE | 2021-08-02 18:25 | P.STRESS ---
- Stress Test Note Stress Test Results/Findings: Exam Performed: stress echo exercise Exam Date: 08/02/21 Reason for Exam: CHEST TIGHTNESS Height: 5 ft 10 in Weight: 83.007 kg Protocol: CATHY Stage: III Duration of Exercise: 9 MIN Resting Heart Rate: 66 Resting Blood Pressure: 130/81 Maximum Achieved Heart Rate: 151 Maximum Achieved Blood Pressure: 185/73 85% PMHR: 131 100% PMHR: 154 METS: 10.5 Technologist Comment: Stress Test Results/Findings: Baseline heart rate 66 beats a minute, Baseline blood pressure 130/81 mmHg Baseline twelve-lead EKG shows sinus rhythm normal ST segments Baseline 2-D echo in September showed normal LV systolic function without segmental wall motion abnormalities Patient exercised a Cathy protocol for 9 minutes Peak 100 151 beats a minute, asymptomatic Occasional PVCs Normal blood pressure response Excellent augmentation overall LV contractility on 2-D echo images without development any wall motion abnormalities @Recovery region global LV systolic function remained normal Impression normal exercise stress echo
--- NOTE | 2021-08-04 10:10 | EST ---
Stress Test Results/Findings: Exam Performed: stress echo exercise Exam Date: 08/02/21 Reason for Exam: CHEST TIGHTNESS Height: 5 ft 10 in Weight: 83.007 kg Protocol: CATHY Stage: III Duration of Exercise: 9 MIN Resting Heart Rate: 66 Resting Blood Pressure: 130/81 Maximum Achieved Heart Rate: 151 Maximum Achieved Blood Pressure: 185/73 85% PMHR: 131 100% PMHR: 154 METS: 10.5 Technologist Comment: Stress Test Results/Findings: Baseline heart rate 66 beats a minute, Baseline blood pressure 130/81 mmHg Baseline twelve-lead EKG shows sinus rhythm normal ST segments Baseline 2-D echo in September showed normal LV systolic function without segmental wall motion abnormalities Patient exercised a Cathy protocol for 9 minutes Peak 100 151 beats a minute, asymptomatic Occasional PVCs Normal blood pressure response Excellent augmentation overall LV contractility on 2-D echo images without development any wall motion abnormalities @Recovery region global LV systolic function remained normal Impression Normal exercise stress echo MTDD
== END | disposition home or self-care (01) ==
LOC: RADNMMAIN 09:00
PROVIDERS: ATTEND Family Medicine
DX: R07.89 Other chest pain (principal)
CPT/HCPCS: 93351

== ENCOUNTER 2022-08-20 08:26 | Emergency (ER) | payer MEDICARE ==
[2022-08-20] MEDS ORDERED: KETOROLAC 15 MG/ML 1 ML VIAL IVP STA (08:45)
[2022-08-20] MEDS ORDERED: ONDANSETRON 4 MG/2 ML VIAL IVP STA (08:45)
[2022-08-20] MEDS ORDERED: SODIUM CHLORIDE 0.9% 1,000 ML IV STA (08:45)
[2022-08-20] MEDS ORDERED: SODIUM CHLORIDE 0.9% 500 ML 500 ML IV STA (08:45)
[2022-08-20] MEDS ORDERED: HYDROmorphone 0.5 MG/0.5 ML SYRINGE IVP STA (08:46)
[2022-08-20 09:03] LABS: Basophils # (A) 0.1 k/uL (0-0.2); Basophils % (A) 0 %; Eosinophils # (A) 0.1 k/uL (0-0.7); Eosinophils % (A) 1 %; HCT 45.3 % (39.0-53.0); HGB 15.4 gm/dL (13.0-17.5); Lymphocytes # (A) 0.9 k/uL (1.0-4.8); Lymphocytes % (A) 8 %; MCH 30.8 pg (25.0-35.0); MCV 90.7 fL (80.0-100.0); Mean Platelet Volume 8.5; Monocytes # (A) 0.5 k/uL (0-1.0); Monocytes % (A) 4 %; Neutrophils # (A) 8.9 k/uL (1.3-7.7); Neutrophils % (A) 85 %; Platelet Count 118 k/uL (150-450); RBC 4.99 m/uL (4.30-5.90); RDW 14.3 % (11.5-15.5); WBC 10.4 k/uL (3.8-10.6)
[2022-08-20 09:16] LABS: Albumin 3.9 g/dL (3.5-5.0); Calcium 9.2 mg/dL (8.4-10.2); Total Bilirubin 0.9 mg/dL (0.2-1.3); Total Protein 6.5 g/dL (6.3-8.2)
[2022-08-20 09:21] LABS: Potassium 4.6 mmol/L (3.5-5.1)
--- NOTE | 2022-08-20 09:22 | XR ---
EXAMINATION TYPE: XR KUB DATE OF EXAM: 08/20/2022 9:15 AM CLINICAL HISTORY: Left flank pain. History of kidney stones. TECHNIQUE: Two Upright KUB images of the abdomen are obtained. COMPARISON: Abdominal x-ray January 10, 2021 FINDINGS: Approximate 3-4 small right renal calculi redemonstrated measuring up to 4 mm in size. Appr oximate 2-4 left renal calculi measuring up to 3 mm in size are seen on today's study. Overall nonobstructive bowel gas pattern. Coils from left inguinal hernia repair surgery overlying oliveira perior left pubic symphysis redemonstrated. No free air. Lung bases are clear. Prominent spur right L 3-L4 level is redemonstrated. IMPRESSION: Bilateral nephrolithiasis redemonstrated as detailed above.
[2022-08-20 10:08] LABS: Appearance,Urine Clear (Clear); Bilirubin,Urine Negative (Negative); Blood,Urine Negative (Negative); Color,Urine Yellow; Glucose,Urine (UA) Negative (Negative); Ketones,Urine Negative (Negative); Leukocyte Esterase,Urine Negative (Negative); Nitrite,Urine Negative (Negative); Protein,Urine Trace (Negative); Specific Gravity,Urine 1.022 (1.001-1.035); Urobilinogen,Urine <2.0 mg/dL (<2.0)
--- NOTE | 2022-08-20 10:40 | CT ---
EXAMINATION TYPE: CT abdomen pelvis wo con DATE OF EXAM: 08/20/2022 HISTORY: left flank pain. History of hernia repair surgery. CT DLP: 656.4 mGycm. Automated Exposure Control for Dose Reduction was Utilized. TECHNIQUE: CT scan of the abdomen and pelvis is performed without oral or IV contrast. COMPARISON: CT abdomen and pelvis December 06, 2020 FINDINGS: Within the limitations of a non-contrast study, the following observations are made. LUNG BASES: No significant abnormality is appreciated. LIVER/GB: Occasional tiny hypodense lesion in the left hepatic dome is redemonstrated too small to fu rther characterize but is presumed benign. PANCREAS: No significant abnormality is seen. SPLEEN: No significant abnormality is seen. ADRENALS: No significant abnormality is seen. KIDNEYS: Multiple small bilateral renal calculi are redemonstrated. At least 10 calculi are present b ilaterally measuring up to 5 mm in size. No right-sided hydronephrosis or obstructing ureter calculi. Left kidney shows mild hydronephrosis due to obstructing 4 mm distal left ureter calculus axial imag e 125. No intraluminal calculus in the bladder. BOWEL: No significant abnormality is seen. GENITAL ORGANS: No gross abnormality seen. LYMPH NODES: No greater than 1cm abdominal or pelvic lymph nodes are appreciated. OSSEOUS STRUCTURES: Mild to moderate axial joint space loss in both hips with subchondral cystic keys ge and mild spurring. OTHER: No significant additional abnormality is seen. IMPRESSION: There is 4 mm calculus in the distal left ureter causing mild left-sided hydronephrosis.
--- NOTE | 2022-08-20 10:47 | ED ---
Abdominal Pain HPI - General Chief Complaint: Abdominal Pain Stated Complaint: Side & Back Pain Time Seen by Provider: 08/20/22 08:34 Source: patient, RN notes reviewed Mode of arrival: ambulatory Limitations: no limitations - History of Present Illness Initial Comments: This a 67-year-old male presents emergency Department with chief complaint of left flank pain. Patient states a sudden onset woke up this morning. Patient does admit to nausea vomiting nothing makes the pain feel better or worse. Patient states that kidney stones on the right this feels different. Patient denies any change in bowel habits patient states that he drank some water and felt better. Patient denies any dysuria or noted hematuria. No fevers or chills no chest pain or shortness of breath. - Related Data Home Medications Medication Instructions Recorded Confirmed amLODIPine [Norvasc] 2.5 mg PO DAILY 01/28/14 07/20/21 Pravastatin Sodium [Pravachol] 20 mg PO DAILY 08/11/19 07/20/21 Tamsulosin HCl [Flomax] 0.4 mg PO HS PRN 08/11/19 07/20/21 allopurinoL [Zyloprim] 100 mg PO DAILY 12/30/20 07/20/21 Previous Rx's Medication Instructions Recorded Ketorolac [Toradol] 10 mg PO Q8HR #15 tab 08/20/22 Ondansetron Odt [Zofran Odt] 4 mg PO Q8HR PRN #10 tab 08/20/22 Allergies Allergy/AdvReac Type Severity Reaction Status Date / Time lisinopril Allergy Severe RENAL Verified 08/20/22 08:27 FAILURE sulfamethoxazole Allergy Severe RENAL Verified 08/20/22 08:27 [From Bactrim] FAILURE trimethoprim [From Bactrim] Allergy Severe RENAL Verified 08/20/22 08:27 FAILURE amoxicillin [Amoxicillin] Allergy Unknown Rash/Hives Verified 08/20/22 08:27 Penicillins Allergy Unknown Rash/Hives Verified 08/20/22 08:27 Review of Systems ROS Statement: Those systems with pertinent positive or pertinent negative responses have been documented in the HPI. ROS Other: All systems not noted in ROS Statement are negative. Past Medical History Past Medical History: Hyperlipidemia, Hypertension, Osteoarthritis (OA) Additional Past Medical History / Comment(s): GOUT, BACK PAIN. STATES "KIDNEYS SHUT DOWN FROM MEDICATIONS" History of Any Multi-Drug Resistant Organisms: None Reported Additional Past Surgical History / Comment(s): RT HAND TRIGGER FINGER Past Anesthesia/Blood Transfusion Reactions: No Reported Reaction Past Psychological History: Anxiety Smoking Status: Never smoker Past Alcohol Use History: Occasional Past Drug Use History: Marijuana General Exam Limitations: no limitations General appearance: alert, in no apparent distress Head exam: Present: atraumatic, normocephalic, normal inspection Eye exam: Present: normal appearance, PERRL, EOMI. Absent: scleral icterus, conjunctival injection, periorbital swelling ENT exam: Present: normal exam, normal oropharynx, mucous membranes moist Neck exam: Present: normal inspection, full ROM. Absent: tenderness, meningismus, lymphadenopathy Respiratory exam: Present: normal lung sounds bilaterally. Absent: respiratory distress, wheezes, rales, rhonchi, stridor Cardiovascular Exam: Present: regular rate, normal rhythm, normal heart sounds. Absent: systolic murmur, diastolic murmur, rubs, gallop, clicks GI/Abdominal exam: Present: soft, tenderness, normal bowel sounds. Absent: distended, guarding, rebound, rigid Back exam: Present: CVA tenderness (L) Course Vital Signs 08/20/22 08/20/22 08:28 11:32 Temperature 97.9 F 98.7 F Pulse Rate 66 71 Respiratory 20 19 Rate Blood Pressure 149/88 143/90 O2 Sat by Pulse 100 99 Oximetry Medical Decision Making - Medical Decision Making Was pt. sent in by a medical professional or institution (, PA, EXTRUDING DEPARTMENT SUPERVISOR, urgent care, hospital, or [place] health care facility...) When possible be specific @ -No Did you speak to anyone other than the patient for history (EMS, parent, family, police, friend...)? What history was obtained from this source @ -No Did you review nursing and triage notes (agree or disagree)? Why? @ -I reviewed and agree with nursing and triage notes Were old charts reviewed (outside hosp., previous admission, EMS record, old EKG, old radiological studies, urgent care reports/EKG's, [place] health care facility records)? Report findings @ -No old charts were reviewed Differential Diagnosis (chest pain, altered mental status, abdominal pain women, abdominal pain men, vaginal bleeding, weakness, fever, dyspnea, syncope, headache, dizziness, GI bleed, back pain, seizure, CVA, palpatations, mental health, musculoskeletal)? @ - Differential Abdominal Pain Men: Appendicitis, cholecystitis, diverticulosis, ischemic bowel, pancreatitis, hepatitis, UTI, gastroenteritis, AAA, incarcerated hernia, bowel obstruction, constipation, inflammatory bowel, hepatitis, peptic ulcer disease, splenic infarction, perforated viscus, testicular torsion, this is not meant to be an all-inclusive list] EKG interpreted by me (3pts min.). @ -As above X-rays interpreted by me (1pt min.). @ -X-ray shows no acute process KUB CT interpreted by me (1pt min.). @ -CT of the pelvis shows evidence of 4 mm obstructing left ureteral calculi U/S interpreted by me (1pt. min.). @ -None done What testing was considered but not performed or refused? (CT, X-rays, U/S, labs)? Why? @ -None What meds were considered but not given or refused? Why? @ -None Did you discuss the management of the patient with other professionals (professionals i.e. , PA, EXTRUDING DEPARTMENT SUPERVISOR, lab, RT, psych nurse, oncology social worker, audiovisual aids technician, teacher, tactical response group officer, case loader operator)? Give summary @ -No Was smoking cessation discussed for >3mins.? @ -No Was critical care preformed (if so, how long)? @ -No Were there social determinants of health that impacted care today? How? (Homelessness, low income, unemployed, alcoholism, drug addiction, transportation, low edu. Level, literacy, decrease access to med. care, detention, rehab)? @ -No Was there de-escalation of care discussed even if they declined (Discuss DNR or withdrawal of care, Hospice)? DNR status @ -No What co-morbidities impacted this encounter? (DM, HTN, Smoking, COPD, CAD, Cancer, CVA, ARF, Chemo, Hep., AIDS, mental health diagnosis, sleep apnea, morbid obesity)? @ -Kidney stones Was patient admitted / discharged? Hospital course, mention meds given and route, prescriptions, significant lab abnormalities, going to OR and other pertinent info. @ -Discharge patient feels greatly improved patient is well hydrated, given antiemetics and pain control patient was discharged in stable condition with close follow-up. Undiagnosed new problem with uncertain prognosis? @ -No Drug Therapy requiring intensive monitoring for toxicity (Heparin, Nitro, Insulin, Cardizem)? @ -No Were any procedures done? @ -No Diagnosis/symptom? @ -Left ureteral calculi Acute, or Chronic, or Acute on Chronic? @ -Acute Uncomplicated (without systemic symptoms) or Complicated (systemic symptoms)? @ -Uncomplicated Side effects of treatment? @ -No Exacerbation, Progression, or Severe Exacerbation? @ -No Poses a threat to life or bodily function? How? (Chest pain, [place], [place], pneumonia, PE, COPD, DKA, ARF, appy, cholecystitis, CVA, Diverticulitis, Homicidal, Suicidal, threat to staff... and all critical care pts) @ -No - Lab Data Result diagrams: 08/20/22 08:56 08/20/22 08:56 Lab Results 08/20/22 08/20/22 08/20/22 Range/Units 08:56 08:56 10:00 WBC 10.4 (3.8-10.6) k/uL RBC 4.99 (4.30-5.90) m/uL Hgb 15.4 (13.0-17.5) gm/dL Hct 45.3 (39.0-53.0) % MCV 90.7 (80.0-100.0) fL MCH 30.8 (25.0-35.0) pg MCHC 34.0 (31.0-37.0) g/dL RDW 14.3 (11.5-15.5) % Plt Count 118 L (150-450) k/uL MPV 8.5 Neutrophils % 85 % Lymphocytes % 8 % Monocytes % 4 % Eosinophils % 1 % Basophils % 0 % Neutrophils # 8.9 H (1.3-7.7) k/uL Lymphocytes # 0.9 L (1.0-4.8) k/uL Monocytes # 0.5 (0-1.0) k/uL Eosinophils # 0.1 (0-0.7) k/uL Basophils # 0.1 (0-0.2) k/uL Sodium 141 (137-145) mmol/L Potassium 4.6 (3.5-5.1) mmol/L Chloride 109 H (98-107) mmol/L Carbon Dioxide 23 (22-30) mmol/L Anion Gap 9 mmol/L BUN 24 H (9-20) mg/dL Creatinine 1.42 H (0.66-1.25) mg/dL Est GFR (CKD-EPI)AfAm 59 (>60 ml/min/1.73 sqM) Est GFR (CKD-EPI)NonAf 51 (>60 ml/min/1.73 sqM) Glucose 166 H (74-99) mg/dL Calcium 9.2 (8.4-10.2) mg/dL Total Bilirubin 0.9 (0.2-1.3) mg/dL AST 29 (17-59) U/L ALT 23 (4-49) U/L Alkaline Phosphatase 73 (38-126) U/L Total Protein 6.5 (6.3-8.2) g/dL Albumin 3.9 (3.5-5.0) g/dL Lipase 64 (23-300) U/L Urine Color Yellow Urine Appearance Clear (Clear) Urine pH 7.0 (5.0-8.0) Ur Specific [place] 1.022 (1.001-1.035) Urine Protein Trace H (Negative) Urine Glucose (UA) Negative (Negative) Urine Ketones Negative (Negative) Urine Blood Negative (Negative) Urine Nitrite Negative (Negative) Urine Bilirubin Negative (Negative) Urine Urobilinogen <2.0 (<2.0) mg/dL Ur Leukocyte Esterase Negative (Negative) Disposition Clinical Impression: Left ureteral calculus Disposition: HOME SELF-CARE Condition: Stable Instructions (If sedation given, give patient instructions): Kidney Stones (ED) Additional Instructions: Please return to the Emergency Department if symptoms worsen or any other concerns. Prescriptions: Ketorolac [Toradol] 10 mg PO Q8HR #15 tab Ondansetron Odt [Zofran Odt] 4 mg PO Q8HR PRN #10 tab PRN Reason: Nausea Is patient prescribed a controlled substance at d/c from ED?: No Referrals: Orlin Catalan MD [Primary Care Provider] - 1-2 days Dom Carmen MD [STAFF PHYSICIAN] - 1-2 days Time of Disposition: 11:14
[2022-08-20] MEDS ORDERED: ACET/COD 300 MG/30 MG STARTER PACK 6 TAB BTL PO STA (11:13)
[2022-08-20 11:36] VITALS: BP 143/90; PULSE 71; RESP 19; TEMP 98.7
== END 2022-08-20 11:30 | disposition home or self-care (01) ==
LOC: EC 08:26
DX: N13.2 Hydronephrosis with renal and ureteral calculous obstruction (principal); E78.5 Hyperlipidemia, unspecified; I10 Essential (primary) hypertension; F41.9 Anxiety disorder, unspecified; F12.90 Cannabis use, unspecified, uncomplicated; Z79.899 Other long term (current) drug therapy; Z88.2 Allergy status to sulfonamides; Z88.0 Allergy status to penicillin; Z88.6 Allergy status to analgesic agent
CPT/HCPCS: 36415; 80053; 83690; 85025; 81003; 74018; 74176; 99284; 96374; 96375 ×2; 96361; J2405; J1885; J1170

== ENCOUNTER → 2022-09-07 | Outpatient (CLI) | payer MEDICARE ==
--- NOTE | 2022-09-07 16:07 | US ---
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 Bilateral Jets seen: Yes There is no evidence for hydronephrosis at this point in time. Bilateral obstructing calculi present. No masses are identified. The urinary bladder is anechoic. Bilateral ureteral jets are seen. IMPRESSION: No evidence of obstructive uropathy. There are multiple nonobstructing renal calculi and a hyperechoi c focus which may represent anterior abdominal wall hernia anchor seen on prior CT.
== END | disposition home or self-care (01) ==
LOC: RADUSWWP 15:26
PROVIDERS: ATTEND Family Medicine
DX: N20.0 Calculus of kidney (principal); N13.8 Other obstructive and reflux uropathy
CPT/HCPCS: 76770

== ENCOUNTER → 2023-05-09 | Outpatient (CLI) | payer MEDICARE ==
--- NOTE | 2023-05-10 11:39 | US ---
EXAMINATION TYPE: US kidneys/renal and bladder DATE OF EXAM: 05/09/2023 COMPARISON: None CLINICAL INDICATION: Male, 68 years old with history of N20.0 CALCULUS OF KIDNEY; Kidney stone. EXAM MEASUREMENTS: Right Kidney: 10.0 x 5.9 x 5.0 cm Left Kidney: 10.1 x 5.0 x 5.2 cm Right Kidney: Two echogenic foci with posterior shadowing seen, #1= mid 0.6 x 0.7 x 0.4 cm #2= lower 0.6 x 0.5 x 0.4 cm. No hydronephrosis. Left Kidney: Hyperechoic focus with posterior shadowing seen upper= 0.5 x 0.5 x 0.5 cm. No hydroneph rosis. Bladder: No gross abnormality. Bilateral Jets seen: Yes IMPRESSION: 1. No hydronephrosis. 2. Bilateral nephrolithiasis measuring up to 7 mm on the right and 5 mm on the left.
== END | disposition home or self-care (01) ==
LOC: RADUSWWP 14:52
PROVIDERS: ATTEND Family Medicine
DX: N20.0 Calculus of kidney (principal)
CPT/HCPCS: 76770

== ENCOUNTER → 2024-09-04 | Outpatient (CLI) | payer MEDICARE ==
--- NOTE | 2024-09-04 15:08 | CT ---
EXAMINATION TYPE: CT abdomen pelvis wo con DATE OF EXAM: 09/04/2024 COMPARISON: 08/20/2022 CLINICAL INDICATION: Male, 69 years old with history of N20.0 CALCULUS OF KIDNEY; PHH, Flank pain. Hx of renal stones. TECHNIQUE: CT scan of the abdomen and pelvis is performed without oral or IV contrast. CT DLP: 433.[address] CTDI: mGy Automated exposure control for dose reduction was used. FINDINGS: Within the limitations of a non-contrast study, the following observations are made. The lungs are clear. There is a stable 3 to 4 mm left lower lobe nodule. Gallbladder is normal and there is no gallstone, wall thickening, pericholecystic fluid or distention . There is no biliary ductal dilatation. There is no organomegaly of the liver, pancreas, spleen or adrenal glands. There is stable nephrolithiasis without hydronephrosis. There are approximately 8-9 right renal calcu li. The largest measures approximately 7 mm. There are approximately 8 left renal calculi largest of which is approximately 7.2 mm. The caliber of the abdominal aorta is normal and there is no retroperitoneal adenopathy or hemorrhage . The bowel loops are normal in caliber is no evidence of obstruction. No inflammatory changes are iden tified in the mesentery and there is no free intraperitoneal air or fluid. There is no pelvic mass, free fluid, abscess or adenopathy. There is mild diverticulosis of the colon without CT evidence of diverticulitis. The osseous structures and soft tissues are unremarkable. IMPRESSION: Stable nephrocalcinosis of both kidneys as described above. There is no hydronephrosis. [facility], Workstation: LUIS [email or web address], 09/04/2024 3:06 PM
== END | disposition home or self-care (01) ==
LOC: RADCTMAIN 14:21
PROVIDERS: ATTEND Family Medicine
DX: N20.0 Calculus of kidney (principal); N29 Other disorders of kidney and ureter in diseases classified elsewhere; Z87.442 Personal history of urinary calculi
CPT/HCPCS: 74176